=== PATIENT | male | born 1935 | race Caucasian/White ===

== ENCOUNTER 2024-05-20 08:31 | Outpatient (CLI) | payer MEDICARE | END 2024-05-20 08:32 | disposition home or self-care (01) | LOC: NM 08:31 | PROVIDERS: ATTEND Psychiatry & Neurology Neurology | DX: G20.C Parkinsonism, unspecified (principal); R90.89 Other abnormal findings on diagnostic imaging of central nervous system | CPT/HCPCS: 78803; A9584 ×2 ==